=== PATIENT | female | born 1970 | race Caucasian/White ===

== ENCOUNTER 2023-07-30 06:28 | Day surgery (SDC) | payer BC ==
--- NOTE | 2023-07-29 09:49 | HP ---
DATE OF SURGERY: 07/30/2023 HISTORY OF PRESENT ILLNESS: The patient is a 53-year-old female who is complaining of some heartburn. She has been on Prilosec. She has been having a hard time getting food down. She had some chicken and some pills that were getting stuck. Last colonoscopy was in 2014 and there were no polyps. She did have an EGD as well. They did do some dilatation. She does have some mid to upper esophagus pain and discomfort. PAST MEDICAL HISTORY: Psoriatic arthritis. Gastroesophageal reflux disease. Depression. Hypothyroidism. PAST SURGICAL HISTORY: Tonsillectomy. section. Hysterectomy. Meniscal repair. ALLERGIES: NKDA. MEDICATIONS: Humira, methotrexate. Celebrex. Lexapro, folic acid, methylprednisolone, Ozempic, Synthroid. FAMILY HISTORY: Squamous cell skin cancer, diabetes, kidney disease, heart disease. SOCIAL HISTORY: Negative. REVIEW OF SYSTEMS: CONSTITUTIONAL: Denies fever or chills. CHEST: Denies shortness of breath. CVS: Denies chest pain. ABDOMEN: Reports epigastric pain. PHYSICAL EXAMINATION: GENERAL: No acute distress. CHEST: Nonlabored. No shortness of breath. CVS: Regular rate and rhythm. ABDOMEN: Soft. IMPRESSION: Dysphagia, heartburn, epigastric pain. PLAN: EGD with possible dilatation with Dr. Shine Blount. As dictated by Kirsten Dumont NP.
[2023-07-30] MEDS ORDERED: Lactated Ringers 1,000 ML IV ONE (06:52)
[2023-07-30] MEDS ORDERED: Lactated Ringers 1,000 ML IV SCH (07:00)
[2023-07-30] MEDS ORDERED: Versed 2 MG/2 ML Injection ONE (08:42)
[2023-07-30] MEDS ORDERED: DIPRIVAN 200 MG/20 ML IV ONE ×2 (08:42→09:00)
[2023-07-30] MEDS ORDERED: Xylocaine-Mpf 2% 5 Ml Vial ONE (08:42)
[2023-07-30 09:03] VITALS: RESP 16; TEMP 98.1
[2023-07-30 09:20] VITALS: BP 106/66; PULSE 81; O2SAT 98
--- NOTE | 2023-07-30 09:34 | OP ---
SURGERY DATE/TIME: 07/30/2023 1740 PREOPERATIVE DIAGNOSIS: Symptoms of reflux, epigastric pain and difficulty swallowing. POSTOPERATIVE DIAGNOSIS: The patient has a 2 inch hiatal hernia. She does not have any stricture today. She does have grade 2 over 4 gastroesophageal reflux disease and she does have some distal esophageal spasm. PROCEDURE: EGD only. SURGEON: Shine Blount M.D. CUSTOMER RESPONSE REPRESENTATIVE: Souleymane Grimaldo M.D. [facility] Resident. ANESTHESIA: MAC. COMPLICATIONS: None. CONDITION: Stable. DESCRIPTION OF PROCEDURE: Taken to endoscopy. MAC sedation provided. Scope introduced. Pharyngoesophageal junction normal. Esophagus down to gastroesophageal junction 2 cm rim of esophagitis grade 2. She is on Prilosec currently. She does have a 2 inch hiatal hernia. Fundus, body and antrum normal. Pylorus normal. Duodenal bulb normal. Second portion normal. Scope withdrawn looped upon itself. 2 inch hiatal hernia. Scope withdrawn. There is a rim of esophagitis grade 2 but there is no stricture today. The lumen size is about 52 - 54. Scope is withdrawn. Findings discussed with the . I think it is important that there was not a stricture and not dilated but there was no stricture and therefore it was not dilated. There is significant esophagitis and there is some secondary spasm and there is a 2 inch hiatal hernia which also intermittently traps material. She was given Protonix to take in addition to Prilosec for one month. She could consider a robotic Tim fundoplication. We have at least three surgeons in our office that do this procedure currently, this was suggested. I do not think that she necessarily to that point if she is going to want to choose that route yet.
== END 2023-07-30 09:28 | disposition home or self-care (01) ==
LOC: SDC 06:28
PROVIDERS: ATTEND Surgery
DX: K44.9 Diaphragmatic hernia without obstruction or gangrene (principal); K21.9 Gastro-esophageal reflux disease without esophagitis; R10.13 Epigastric pain; R13.10 Dysphagia, unspecified
CPT/HCPCS: J2250; J2704

== ENCOUNTER 2023-08-08 22:52 | Emergency (ER) | payer BC ==
[2023-08-08 23:11] VITALS: RESP 18; TEMP 97.7; O2SAT 99
--- NOTE | 2023-08-08 23:35 | ERPHSYRPT ---
- History of Present Illness Time Seen by Provider: 08/08/23 23:29 Source: patient Exam Limitations: no limitations Patient Subjective Stated Complaint: pt states that she has increased pain to her left knee. pt had knee surgery on the in [facility]. pt states surgeon is Dr. Blood. pt states that she talked to the surgeon and surgeon was wanting pt to be checked for a DVT Triage Nursing Assessment: pt came into the er via ambulance; pt was transferred to cot per ems staff and ed staff; c/o left knee pain and swelling to LLE; [address] to left knee at time of arrival; mild trace swelling to LLE; weak left pedal pulse; LLE is warm and dry to the touch; no respiratory distress present; vitals wnl Physician History: pt states that she has increased pain to her left knee. pt had knee surgery on the in [facility]. pt states surgeon is Dr. Blood. pt states that she talked to the surgeon and surgeon was wanting pt to be checked for a DVT Timing/Duration: today Modifying Factors: Improves With: immobilization Associated Symptoms: denies symptoms Allergies/Adverse Reactions: adhesive Allergy (Verified 08/08/23 22:59) Rash Home Medications: Lexapro 10 mg PO DAILY 08/16/12 [History] Adalimumab [Humira Pen] 40 mg SQ UD 07/13/23 [History] Folic Acid 1 mg [Folate 1 mg] 1 mg PO UD 07/13/23 [History] Levothyroxine Sodium 88 Mcg [Synthroid 88 Mcg] 88 mcg PO DAILY 07/13/23 [History] Methotrexate Sodium 2.5 mg [Trexall 2.5 mg] 2.5 mg PO UD 07/13/23 [History] Semaglutide [Ozempic] 1 mg SQ WEEKLY 07/13/23 [History] Multivitamin 1 each PO DAILY 07/30/23 [History] Omeprazole 40 mg PO DAILY 07/30/23 [History] Hydrocodone/Acetaminophen [Hydrocodone-Acetamin 5-325 mg] 1 tab PO Q6HPRN PRN MDD 4 08/08/23 [History] Nabumetone 750 mg PO BID 08/08/23 [History] Hx Tetanus, Diphtheria Vaccination/Date Given: Yes Hx Influenza Vaccination/Date Given: No Hx Pneumococcal Vaccination/Date Given: No Travel Risk - International Travel Have you traveled outside of the country in past 3 weeks: No - Coronavirus Screening Are you exhibiting any of the following symptoms?: No Close contact with a COVID-19 positive Pt in past 14-21 Days: No - Vaccine Status Have you recieved a Covid-19 vaccination: Yes Bowling Ball Patcher: Etece - Review of Systems Constitutional: No Fever, No Chills Eyes: No Symptoms Ears, Nose, & Throat: No Symptoms Respiratory: No Cough, No Dyspnea Cardiac: No Chest Pain, No Edema, No Syncope Abdominal/Gastrointestinal: No Abdominal Pain, No Nausea, No Vomiting, No Diarrhea Genitourinary Symptoms: No Dysuria Musculoskeletal: Joint Redness (left knee), Joint Pain, Joint Swelling, Other (pain and swelling in groin area, no calf tenderness.), No Back Pain, No Neck Pain Skin: No Symptoms, No Rash Neurological: No Dizziness, No Focal Weakness, No Sensory Changes Psychological: No Symptoms Endocrine: No Symptoms All Other Systems: Reviewed and Negative - Past Medical History Pertinent Past Medical History: Yes Neurological History: No Pertinent History ENT History: No Pertinent History Cardiac History: No Pertinent History Respiratory History: Sleep Apnea Endocrine Medical History: Hypothyroidism Musculoskeletal History: No Pertinent History GI Medical History: GERD History: No Pertinent History Psycho-Social History: Anxiety, Depression Female Reproductive Disorders: No Pertinent History Other Medical History: psoratic arthritis, on humira, cpap at [facility] - Past Surgical History Past Surgical History: Yes Neuro Surgical History: No Pertinent History Cardiac: No Pertinent History Respiratory: No Pertinent History Gastrointestinal: No Pertinent History Genitourinary: No Pertinent History Musculoskeletal: Orthopedic Surgery Female Surgical History: Hysterectomy, Section Other Surgical History: back lumbar 2010-----lymph node removal groin 2014. x2. right knee 2020, left knee 2022. hand surgery - Social History Smoking Status: Never smoker Exposure to second hand smoke: No Drug Use: none Patient Lives Alone: No - Nursing Vital Signs Nursing Vital Signs: Initial Vital Signs Temperature 97.7 F 08/08/23 22:53 Pulse Rate 73 08/08/23 22:53 Respiratory Rate 18 08/08/23 22:53 Blood Pressure 124/77 08/08/23 22:53 O2 Sat by Pulse Oximetry 99 08/08/23 22:53 Pain Scale Pain Intensity 7 - Physical Exam General Appearance: no apparent distress, alert Eye Exam: PERRL/EOMI, eyes nml inspection Ears, Nose, Throat Exam: normal ENT inspection, TMs normal, pharynx normal, moist mucous membranes Neck Exam: normal inspection, non-tender, supple, full range of motion Respiratory Exam: normal breath sounds, lungs clear, No respiratory distress Cardiovascular Exam: regular rate/rhythm, normal heart sounds, normal peripheral pulses Gastrointestinal/Abdomen Exam: soft, normal bowel sounds, No tenderness, No mass Back Exam: normal inspection, normal range of motion, No CVA tenderness, No vertebral tenderness Extremity Exam: normal inspection, normal range of motion, pelvis stable, inflammation (around knee), joint swelling (left knee), limited range of motion (left knee), swelling (left knee), tenderness, No calf tenderness, No deformities Neurologic Exam: alert, oriented x 3, cooperative, normal mood/affect, nml cerebellar function, nml station & gait, sensation nml, No motor deficits Skin Exam: normal color, warm, dry, No rash Lymphatic Exam: No adenopathy SpO2: 99 Procedures - Limited Musculoskeletal Ultrasound Indications: other (DVT) Results: other (No DVT on left lower extrimity venous system, Veins aree fully compressible) - Course Nursing assessment & vital signs reviewed: Yes - Radiology Ultrasound Exam Venous Lower Extremity Ultrasound: negative (no DVT) - Progress Progress: unchanged Progress Note: 08/08/23 23:38 . With use of emergency room ultrasound I did a venous duplex study for left lower extremity all the way from popliteal vein till the femoral vein and all the veins are compressible and did not find any area of blood clot. I explained to the patient that these are preliminary findings and there is still 5% chance that you may have been developing blood clot so we have started you on anticoagulation at Eliquis 5 mg twice a day. We have given you 1 dose here and we have sent 4 pills which will cover you till Thursday when you have a venous duplex ultrasound on Thursday at 10:00. Your primary care physician will be notified about the results so afterwards you can talk to your primary care physician and decide about further treatment according to the results. 08/08/23 23:40 Counseled pt/family regarding: diagnosis, need for follow-up Medical Desision Making - Diagnostic Testing Diagnostic test were ordered, analyzed, and reviewed by me: Yes Radiological Interpretation: Reviewed by me - Risk of complications Low Risk: Low risk of morbidity from additional dx testing or treatment - Departure Departure Disposition: Home Clinical Impression: Pain of left lower extremity, Status post meniscectomy Condition: Stable Critical Care Time: No Referrals: SERG DUDLEY [Primary Care Provider] - Follow up/PCP as directed Additional Instructions: Your venous duplex for left lower extremity has been scheduled for Thursday at 10 AM. Please contact your primary care physician for the results and further management. You have been started on Eliquis as a precautionary measure and you are going to take 5 mg twice a day until Thursday. Afterwards your primary care physician will decide to continue it or stop it according to venous Doppler results Discharge/Care Plan DAWOOD ALATORRE BETZAIDA was seen on 08/08/23 in the Emergency Room. The patient was counseled regarding Diagnosis,Lab results, Imaging studies, need for follow up and when to return to the Emergency Room. Prescriptions given: Discharge Note I have spoken with the patient and/or caregivers. I have explained the patient's condition, diagnosis and treatment plan based on the information available to me at this time. I have answered the patient's and/or caregiver's questions and addressed any concerns. The patient and/or caregivers have as good understanding of the patient's diagnosis, condition and treatment plan as can be expected at this point. The vital signs have been stable. The patient's condition is stable and appropriate for discharge from the emergency department. The patient will pursue further outpatient evaluation with the primary care physician or other designated or consulting physician as outlined in the discharge instructions. The patient and/or caregivers are agreeable to this plan of care and follow-up instructions have been explained in detail. The patient and/or caregivers have received these instruction. The patient/and or caregivers are aware that any significant change in condition or worsening of symptoms should prompt an immediate return to this or the closest emergency department or call 911.
[2023-08-08] MEDS ORDERED: ELIQUIS 2.5 MG TABLET PO STA (23:41)
[2023-08-08] MEDS ORDERED: TORAdol 30 mg Injection IM ONE (23:44)
[2023-08-08] MEDS ORDERED: ELIQUIS 2.5 MG TABLET ONE (23:50)
[2023-08-08] MEDS ORDERED: TORAdol 30 mg Injection ONE (23:55)
[2023-08-09 00:13] VITALS: BP 104/74; PULSE 77
== END 2023-08-09 00:16 | disposition home or self-care (01) ==
LOC: ED 22:52
DX: G89.18 Other acute postprocedural pain (principal); M25.562 Pain in left knee; Z79.85 Long-term (current) use of injectable non-insulin antidiabetic drugs; Z79.891 Long term (current) use of opiate analgesic; Z79.899 Other long term (current) drug therapy
CPT/HCPCS: 96372; 99283; J1885; A9270-GY